=== PATIENT | male | born 1940 | race Caucasian/White ===

== ENCOUNTER 2018-12-06 05:41 | Emergency (ER) | payer MEDICARE, OTHER ==
[~2018-12-06] VITALS: Ht 177.8 cm; Wt 113.4 kg
[2018-12-06 05:41] VITALS: BP 151/127
[~2018-12-06 05:41] MED LIST: ATROPINE 1 MG/10 ML SYR IVP ONE; CALCIUM CHLORIDE 10% 100 MG/ML SYR IVP ONE; EPINEPHrine PFS 0.1 MG/ML SYR IVP ONE; SODIUM BICARBONATE 8.4% PFS 50 MEQ/50 ML SYR IVP ONE
--- NOTE | 2018-12-06 05:41 | NUR ---
PT TO ED IN FULL ARREST ON ARRIVAL. 2 ROUNDS EPI GIVEN SUPERVISOR PRODUCTION. CPR CONTINUED AT BEDSIDE BY ER STAFF.
--- NOTE | 2018-12-06 05:43 | NUR ---
SEE CODE BLUE RECORD FOR MEDICATIONS GIVEN. PT ARRIVED IN FULL CARDIAC ARREST WITH CPR IN PROGRESS. PT TRANSFERRED TO ER [facility] WITH PULSE CHECK AND CPR CONTINUED.
--- NOTE | 2018-12-06 06:13 | NUR ---
DR NUÑEZ CALLED TIME OF . TOTAL OF 9 ROUNDS OF EPI GIVEN, 1 CA. CLORIDE, 1 ATROPINE AND 1 SODIUM BICARB. PT REMAINED IN PEA DURING TIME OF CPR AND ADVANCED CARDIAC MEDICATIONS. PT WAS SHOCKED AT 0603 WITH 200J, PT REMAINED WITHOUT A PULSE, CPR CONTINUED. TIME OF VERIFIED WITH US BY DR NUÑEZ. DR NUÑEZ TO SPEAK WITH - JIA. SEE CODE BLUE SHEET.
--- NOTE | 2018-12-06 06:22 | NUR ---
PATIENT IN ED ROOM 10 BROUGHT IN BY AMBULANCE, FULL ARREST. DR. NUÑEZ AT BEDSIDE. RT CARLOS ALBERTO AND RT ROSITA AT BEDSIDE. CPR PERFORMED. TIME OF PRONOUNCED AT 0613.
--- NOTE | 2018-12-06 06:28 | NUR ---
SPOKE TO [facility] DEPUTY OFFICE TO REPORT . WIND UP OPERATOR TO CALL BACK.
--- NOTE | 2018-12-06 06:40 | NUR ---
SPOKE WITH ALLYN FROM [facility], WAS INFORMED PT IS POTENTIALLY ELIGBLE. GIVEN CASE NUMBER OF: [id number].
--- NOTE | 2018-12-06 06:53 | NUR ---
CALL FROM BRITTNEY FROM [facility], BODY RELEASED BY [facility], WILL NOT PURSUE CASE.
--- NOTE | 2018-12-06 07:14 | NUR ---
Pt report given to THELMA Campos. Transfer of care at this time.
--- NOTE | 2018-12-06 07:36 | NUR ---
CALLED BACK FIRMWARE SOFTWARE VERIFICATION ENGINEER TO VERIFY OUR SPOT ON HIS/HER LIST----WE ARE NEXT AND THEY WERE ABLE TO CONFIRM CALL BACK NUMBER
--- NOTE | 2018-12-06 08:08 | NUR ---
DEPUTY MAURICIO CARL RELEASED BODY TO MORTUARY [facility] NOTIFIED AND RELEASE OF BODY FAXED OVER TO THEM [phone] AT APRIL'S REQUEST. JOSE WITH DR.USHA MICHELLE EXCHANGED [phone] NOTIFIED OF PT'S PASSING AND TECHNICAL LEAD HAS RELEASED BODY TO MORTUARY
--- NOTE | 2018-12-06 08:53 | NUR ---
REMOVED ALL MEDICAL DEVICES FROM PT---IO RIGHT TIB/FIB DC'D BODY CLEANED
--- NOTE | 2018-12-06 09:20 | NUR ---
PICKED UP BY [facility]
== END 2018-12-06 06:13 | disposition expired ==
LOC: MED 05:41
DX: I46.9 Cardiac arrest, cause unspecified (principal); I10 Essential (primary) hypertension; Z85.46 Personal history of malignant neoplasm of prostate
CPT/HCPCS: 31500; 92950; 99285; J0171; J0461